=== PATIENT | female | born 1960 | race Caucasian/White ===

== ENCOUNTER 2016-12-10 07:12 | Emergency (ER) | payer OTHER ==
[~2016-12-10] VITALS: Ht 170.2 cm; Wt 124.7 kg
[~2016-12-10 07:12] MED LIST: VICODIN5-300 PO
--- NOTE | 2016-12-10 07:18 | ED CARDIAC/CP/PALPITATIONS ---
History of Present Illness General Chief Complaint: Chest Pain Stated Complaint: CHEST DISCOMFORT; WEAKNESS; SOB Source: patient Exam Limitations: no limitations Vital Signs & Intake/Output Vital Signs & Intake/Output Vital Signs Date Time Temp Pulse Resp B/P B/P Pulse O2 O2 Flow FiO2 Mean Ox Delivery Rate 12/10 1318 98.0 80 18 172/74 98 Nasal 2.0L Cannula 12/10 1146 98.2 88 18 141/70 98 Room Air 12/10 0921 98.5 83 18 149/65 98 Nasal 2.0L Cannula 12/10 0756 98.6 88 18 126/58 96 Nasal 2.0L Cannula 12/10 0733 99 Room Air 12/10 0718 96.2 87 20 151/67 96 Room Air ED Intake and Output 12/11 0000 12/10 1200 Intake Total Output Total Balance Patient 275 lb Weight Weight Reported by Patient Measurement Method Allergies Coded Allergies: NO KNOWN ALLERGIES (07/21/13) Reconcile Medications Beclomethasone Dipropionate (QVAR) 40 MCG/ACTUATION AER.W.ADAP 2 PUF INH BID BREATHING PROBLEMS (Reported) Rinse mouth after Tiotropium [place] (Spiriva Respimat) 2.5 MCG/ACTUATION MIST.INHAL 1 PUFF PO DAILY BREATHING PROBLEMS (Reported) Triage Nurses Notes Reviewed? yes Onset: Abrupt Duration: hour(s): (SINCE 4 AM) Timing: multiple episodes today Quality/Severity: mild, moderate Location: central Activities at Onset: rest Aspirin Today: no aspirin today Associated Symptoms: HARD TIME CATCHING BREATH HPI: 56 year old female with history of COPD, sleep apnea presents with a heavy feeling in her chest that started while starting to fall asleep this morning. It felt uncomfortable but was not pain. She states that she had a difficult time sleeping all night long and that every time she started to fall asleep she woke up trying to catch her breath. She is noncompliant with her sleep apnea mask. No history of NV. States blood pressure is under good control. Denies any recent travel or immobilization. Currently the discomfort is rated 2-3 out of 10. She denies it as a pain or pressure but states it is uncomfortable. Symptoms made her anxious and she called her daughter who advised to come to the hospital. She admits to being currently under a lot of stress from issues at home. Past History Travel History Traveled to [place] past 21 day No Medical History Any Pertinent Medical History? see below for history Cardiovascular: hypertension Respiratory: COPD Hepatic: cirrhosis Musculoskeletal: falls Endocrine: diabetes (BORDERLINE) Surgical History Surgical History: non-contributory Psychosocial History What is your primary language Bel[place]ian Tobacco Use: Quit >30 days ago ETOH Use: occasional use Illicit Drug Use: denies illicit drug use Family History Comment: MOM - CABG IN LATE 60'S Hx Contributory? Yes Review of Systems Review of Systems Constitutional: Denies: chills, fever. EENTM: Reports: no symptoms. Respiratory: Reports: short of breath. Denies: cough, sputum production. Cardiovascular: Reports: see HPI (CHEST PRESSURE). Denies: palpitations, peripheral edema, syncope. GI: Denies: abdominal pain, nausea, changes in stool. Genitourinary: Reports: no symptoms. Musculoskeletal: Reports: no symptoms. Skin: Reports: no symptoms. Neurological/Psychological: Reports: anxiety. Hematologic/Endocrine: Denies: bruising, bleeding. Immunologic/Allergic: Denies: splenectomy. All Other Systems: Reviewed and Negative Physical Exam Physical Exam General Appearance: well developed/nourished, alert, awake, anxious, mild distress, moderate distress, obese Head: atraumatic, normal appearance Eyes: Bilateral: normal appearance, PERRL, EOMI. Ears, Nose, Throat: normal pharynx, hearing grossly normal Neck: normal inspection, supple, full range of motion Respiratory: normal breath sounds, chest non-tender, no respiratory distress Cardiovascular: regular rate/rhythm Peripheral Pulses: 2+ radial (R), 2+ radial (L) Gastrointestinal: normal bowel sounds, soft, non-tender, OBESE Extremities: normal inspection, normal range of motion, no edema Neurologic/Psych: no motor/sensory deficits, awake, alert, oriented x 3 Skin: intact, normal color, cyanosis Core Measures ACS in differential dx? Yes ASA ordered for poss ACS? Yes-ordered Severe Sepsis Present: No Septic Shock Present: No Progress Differential Diagnosis: AMI, costochondritis, musculoskeletal pain, myocarditis, pericarditis, pneumonia, pneumothorax, unstable angina, GHISLAINE Plan of Care: Orders Procedure Date/time Status Heart Healthy Diet 12/10 L Active Add-on Test (ER Only) 12/10 1122 Active TROPONIN LEVEL 12/10 1100 Complete EKG 12/10 1100 Active MAGNESIUM 12/10 0729 Complete TROPONIN LEVEL 05/22 0720 Complete PARTIAL THROMBOPLASTIN TIME 12/11 719 Complete PROTHROMBIN TIME 12/11 719 Complete COMPREHENSIVE METABOLIC PANEL 12/11 719 Complete CBC WITHOUT DIFFERENTIAL 12/11 719 Complete EKG 12/10 713 Active Laboratory Tests 12/10/16 1200: Troponin I < 0.01 12/10/16 0729: Anion Gap 9, Estimated GFR > 60, BUN/Creatinine Ratio 15.0, Glucose 148 H, Calcium 8.2 L, Magnesium 1.7, Total Bilirubin 1.0, AST 40 H, ALT 42, Alkaline Phosphatase 177 H, Troponin I < 0.01, Total Protein 6.2 L, Albumin 3.3 L, Globulin 2.9, Albumin/Globulin Ratio 1.1, PT 12.3, INR 1.17, APTT 41 H, CBC w Diff NO MAN DIFF REQ, RBC 4.61, MCV 94.2, MCH 32.3 H, RDW 12.4, MPV 8.6, Gran % 35.8 L, Lymphocytes % 48.9, Monocytes % 11.8 H, Eosinophils % 3.2, Basophils % 0.3, Absolute Granulocytes 1.6, Absolute Lymphocytes 2.2, Absolute Monocytes 0.5 , Absolute Eosinophils 0.1, Absolute Basophils 0, PUBS MCHC 34.3 2 sets of EKGs and troponins are negative. No change in symptoms with nitroglycerin. Patient resting comfortably. Minimal symptoms while in the ED. I suspect that symptoms are likely secondary to sleep apnea but we advised her to follow-up with Dr. Tripp. Message left with Dr. Tripp to follow up the patient in the office for stress testing. (LEO HINES,MARTINA) Diagnostic Imaging: Viewed by Me: Radiology Read. Discussed w/RAD: Radiology Read. Initial ED EKG: NSR, PROLONGED QT Repeat EKG: unchanged (PROLONGED QT 522) Comments: PATIENT: ELEN GONZALES PRESENT AGE: 56 PATIENT ACCOUNT NO: [id number] : 61 LOCATION: [facility] ORDERING PHYSICIAN: MARTINA BAILEY MD SERVICE DATE: 12/10/16 EXAM TYPE: RAD - XRY-PORTABLE CHEST XRAY EXAMINATION: XR PORTABLE CHEST CLINICAL INFORMATION: 56-year-old female patient with chest pain and shortness of breath COMPARISON: None TECHNIQUE: Portable AP semierect view of the chest was obtained. FINDINGS: No significant abnormality is noted involving the heart, lungs, mediastinum, bony thorax or soft tissues. IMPRESSION: No pneumonia or CHF. 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 <Electronically signed in Other Vendor System> SIGNED BY: YEVGENIY CONTRERAS MD [id number] Departure Departure Time of Disposition: 1304 Disposition: HOME OR SELF CARE Condition: Stable Clinical Impression Primary Impression: Chest pain Secondary Impressions: Sleep apnea Referrals: YEISON HINES,NASREEN Loyd (PCP/Family) Nikita TRIPP MD Additional Instructions: Please follow up with the project developer listed. Use your CPAP machine as instructed. Follow-up with your primary care doctor in the office as well. Return to the ER for any changing or worsening symptoms. Departure Forms: Customer Survey General Discharge Information Critical Care Note Critical Care Note Critical Care Time: non-applicable
[2016-12-10 08:11] LABS: ABSOLUTE BASOPHIL COUNT 0 /CUMM (0.0-0.2); ABSOLUTE EOSINOPHIL COUNT 0.1 /CUMM (0.0-0.7); ABSOLUTE GRANULOCYTE CT 1.6 /CUMM (1.4-6.5); ABSOLUTE LYMPH COUNT 2.2 /CUMM (1.2-3.4); ABSOLUTE MONOCYTE COUNT 0.5 /CUMM (0.10-0.60); BASOPHIL % 0.3 % (0.0-2.0); EOSINOPHIL % 3.2 % (0-5); GRANULOCYTE % 35.8 % (42.2-75.2); HEMATOCRIT 43.4 % (37-47); MEAN CORPUSCULAR HGB 32.3 PG (27.0-31.0); MEAN CORPUSCULAR HGB CONC 34.3 G/DL (33.0-37.0); MEAN CORPUSCULAR VOLUME 94.2 FL (81.0-99.0); MEAN PLATELET VOLUME 8.6 FL (7.4-10.4); PLATELET COUNT 76 /CUMM (130-400); RBC DISTRIBUTION WIDTH 12.4 % (11.5-14.5); RED BLOOD CELL CT 4.61 /CUMM (4.20-5.40); WHITE BLOOD CELL COUNT 4.4 /CUMM (4.8-10.8)
--- NOTE | 2016-12-10 08:15 | RADIOLOGY REPORT ---
EXAMINATION: XR PORTABLE CHEST CLINICAL INFORMATION: 56-year-old female patient with chest pain and shortness of breath COMPARISON: None TECHNIQUE: Portable AP semierect view of the chest was obtained. FINDINGS: No significant abnormality is noted involving the heart, lungs, mediastinum, bony thorax or soft tissues. IMPRESSION: No pneumonia or CHF.
[2016-12-10 08:27] LABS: PT 12.3 SEC (9.4-12.5); PTT 41 SEC (25-37)
[2016-12-10] MEDS ORDERED: QVAR8.7 GM INH (08:44)
[2016-12-10] MEDS ORDERED: SPIRIVA RESPIMAT4 GM PO (08:44)
[2016-12-10 13:18] VITALS: BP 172/74
== END 2016-12-10 13:34 ==
LOC: ERH 07:12
PROVIDERS: Emergency Medicine
DX: R07.9 Chest pain, unspecified (principal); G47.30 Sleep apnea, unspecified
CPT/HCPCS: 93005; 93010; J3490